=== PATIENT | female | born 1955 | race Caucasian/White ===

== ENCOUNTER → 2016-10-05 | Outpatient (CLI) | payer OTHER ==
[~2016-10-05] MED LIST: ASPEC81 PO; FENO35TA2 PO; FLV400 PO; GLUC1CAP35 PO; HYG/25 PO; IBUP-1105 PO; LOSA1TAB PO; POTA10CA28 PO
== END | disposition home or self-care (01) ==
LOC: C.LAB1850 15:22
PROVIDERS: ATTEND Family Medicine
DX: E87.6 Hypokalemia (principal)

== ENCOUNTER → 2016-11-16 | Outpatient (CLI) | payer OTHER | END | disposition home or self-care (01) | LOC: C.LAB1850 09:12 | PROVIDERS: ATTEND Family Medicine | DX: E87.6 Hypokalemia (principal) ==

== ENCOUNTER → 2017-01-25 | Outpatient (CLI) | payer OTHER ==
--- NOTE | 2017-01-25 15:58 | MAMMOGRAPHY REPORT ---
BILATERAL DIGITAL SCREENING MAMMOGRAM TOMOSYNTHESIS WITH CAD: 01/25/2017 CLINICAL HISTORY: Routine screening. TECHNIQUE: Breast tomosynthesis in addition to standard 2D mammography was performed. Current study was also evaluated with a Computer Aided Detection (CAD) system. COMPARISON: Comparison is made to exams dated: 03/31/2015 mammogram, 03/30/2014 mammogram, 03/28/2013 m ammogram, 03/20/2012 mammogram, 03/22/2010 mammogram, and [facility] BREAST COMPOSITION: The tissue of both breasts is heterogeneously dense, which may obscure small mas ses. FINDINGS: No suspicious masses, calcifications, or areas of architectural distortion are noted in ei ther breast. There has been no significant interval change compared to prior exams. There are stable postsurgical changes bilaterally, with linear scar markers denoting scars on the left upper outer an d right anterior breast. Surgical clips are noted within the left upper outer quadrant. Oval 7 mm m ass within the right 3:00 breast is stable dating back to at least the 2008 exam. Bilateral benign a ppearing calcifications are not significantly changed. IMPRESSION: ACR BI-RADS CATEGORY 2: BENIGN There is no mammographic evidence of malignancy. A 1 year screening mammogram is recommended. The pa tient will receive written notification of the results. Approximately 10% of breast cancers are not detected with mammography. A negative mammographic report should not delay biopsy if a clinically suggestive mass is present. Alena Suárez M.D. ah/:01/25/2017 15:51:10 Electrical Cad Designer: Irene MOON(R)(M), [facility] letter sent: Normal 1/2 BI-RADS Code: ACR BI-RADS Category 2: Benign
== END | disposition home or self-care (01) ==
LOC: C.MAMM 13:59
PROVIDERS: ATTEND Family Medicine
DX: Z12.31 Encounter for screening mammogram for malignant neoplasm of breast (principal)

== ENCOUNTER → 2017-04-09 | Outpatient (CLI) | payer OTHER | END | disposition home or self-care (01) | LOC: C.PAPS 12:48 | PROVIDERS: ATTEND Family Medicine | DX: Z12.4 Encounter for screening for malignant neoplasm of cervix (principal) ==

== ENCOUNTER → 2017-11-08 | Outpatient (CLI) | payer BC ==
[~2017-11-08] MED LIST changes: -ASPEC81 PO; +ASPI-320 PO
[2017-11-08 09:46] LABS: HEMOGLOBIN A1C 5.8 % (4.5-5.6)
[2017-11-08 10:00] LABS: ALT/SGPT 16 U/L (12-78); BLOOD UREA NITROGEN 23 mg/dl (7-18); CALCIUM 8.4 mg/dl (8.5-10.1); CARBON DIOXIDE 26 mmol/L (21-32); CHOLESTEROL 151 mg/dl (0-200); CREATININE 0.85 mg/dl (0.60-1.20); GLUCOSE 104 mg/dl (70-99); POTASSIUM 3.4 mmol/L (3.5-5.1); SODIUM 141 mmol/L (136-145)
[2017-11-08 10:03] LABS: LDL CHOLESTEROL CALCULATED 85 mg/dl
== END | disposition home or self-care (01) ==
LOC: C.LAB1850 07:26
PROVIDERS: ATTEND Family Medicine
DX: E11.9 Type 2 diabetes mellitus without complications (principal)

== ENCOUNTER → 2018-02-25 | Outpatient (CLI) | payer BC ==
[~2018-02-25] MED LIST changes: -ASPI-320 PO; +ASPI81TA28 PO; -HYG/25 PO; -IBUP-1105 PO; -LOSA1TAB PO; +LOSA50TA6 PO; -POTA10CA28 PO
[2018-02-25 10:37] LABS: CALCIUM 8.9 mg/dl (8.5-10.1); CREATININE 0.87 mg/dl (0.60-1.20); POTASSIUM 3.7 mmol/L (3.5-5.1)
== END | disposition home or self-care (01) ==
LOC: C.LAB1850 09:35
PROVIDERS: ATTEND Family Medicine
DX: E87.6 Hypokalemia (principal)

== ENCOUNTER → 2018-03-06 | Outpatient (CLI) | payer BC ==
--- NOTE | 2018-03-06 13:03 | DIAGNOSTIC IMAGING REPORT ---
LUMBAR SPINE 5 VIEWS CLINICAL HISTORY: Low back pain. FINDINGS: 5 views of the lumbar spine are obtained. No prior studies are available for comparison at the time of dictation. The skeletal structures are osteopenic. There is no radiographic evidence of fracture or malalignment. Vertebral body height and alignment are maintained. The transverse and spinous processes are intact. Small anterior osteophytes are seen throughout. There is no evidence of spondylolysis. Minimal disc space narrowing is seen at L5-S1. The remaining intervertebral disc spaces appear maintained. The visualized bony pelvis appears intact. A bone island is incidentally noted in the sacrum. There is a nonobstructed abdominal bowel gas pattern. Moderate colonic fecal retention is observed. Cholecystectomy clips are noted. IMPRESSION: No acute bony abnormality is seen involving the lumbosacral spine. Electronically signed by: Michael Anne M.D. 03/06/2018 1:01 PM Dictated Date/Time: 03/06/2018 12:59 PM
== END | disposition home or self-care (01) ==
LOC: C.RAD1850 12:26
PROVIDERS: ATTEND Neuromusculoskeletal Medicine & OMM
DX: M54.16 Radiculopathy, lumbar region (principal)